=== PATIENT | female | born 1980 | race Caucasian/White ===

== ENCOUNTER → 2016-09-04 | Outpatient (REF) | payer BC ==
[2016-09-04 13:25] LABS: BASO % 0.6 % (0.0-1.0); EOS # 0.1 K/mm3 (0.0-0.50); EOS % 0.9 % (0.0-3.0); LARGE UNSTAINED CELL # 0.1 K/mm3 (0.0-0.4); LARGE UNSTAINED CELL % 2.1 % (0.0-4.0); LYMPH # 1.8 K/mm3 (1.5-4.5); LYMPH % 29.8 % (24.0-44.0); MEAN CORPUSCULAR HEMOGLOBIN 29.6 pg (27.0-33.0); MEAN CORPUSCULAR HGB CONC 32.4 g/dl (32.0-36.5); MEAN CORPUSCULAR VOLUME 91.4 fl (80.0-96.0); MONO # 0.3 K/mm3 (0.0-0.8); MONO % 4.6 % (0.0-5.0); NEUTROPHILS # 3.8 K/mm3 (1.8-7.7); NEUTROPHILS % 61.9 % (36.0-66.0); PLATELET COUNT, AUTOMATED 225 k/mm3 (150-450); RED CELL DISTRIBUTION WIDTH 12.7 % (11.5-14.5); WHITE BLOOD COUNT 6.1 K/mm3 (4.0-10.0)
[2016-09-04 13:57] LABS: ERYTHROCYTE SEDIMENTATION RATE 3 mm/hr (0-20)
[2016-09-04 14:01] LABS: ALBUMIN 4.1 GM/DL (3.2-5.2); ALBUMIN/GLOBULIN RATIO 1.64 (1.00-1.93); ALKALINE PHOSPHATASE 64 U/L (45-117); ALT/SGPT 38 U/L (12-78); ANION GAP 5 MEQ/L (8-16); AST/SGOT 32 U/L (15-37); BILIRUBIN,TOTAL 0.4 MG/DL (0.2-1.0); BLOOD UREA NITROGEN 21 MG/DL (7-18); CARBON DIOXIDE LEVEL 31 MEQ/L (21-32); CHLORIDE LEVEL 105 MEQ/L (98-107); CREATININE FOR GFR 0.77 MG/DL (0.55-1.02); GAMMA GLUTAMYLTRANSPEPTIDASE 14 U/L (5-55); GLOMERULAR FILTRATION RATE > 60.0 (>60); GLUCOSE, FASTING 83 MG/DL (70-105); IMMUNOGLOBULIN G 792 MG/DL (681-1648); POTASSIUM SERUM 4.8 MEQ/L (3.5-5.1); SODIUM LEVEL 141 MEQ/L (136-145); TOTAL PROTEIN 6.6 GM/DL (6.4-8.2)
[2016-09-05 09:26] LABS: HIV SCRN NEGATIVE (NEGATIVE)
[2016-09-05 09:27] LABS: CONTROL LINE INT CTR LINE PRESENT; HIV SCRN1 NEGATIVE (NEGATIVE)
[2016-09-10 00:06] LABS: EBV PCR QUANTITATIVE Negative copies/mL (Negative); IgG SERUM (part of Subclasses) 704 mg/dL (700-1600); IgG Subclass 1 431 mg/dL (422-1292); IgG Subclass 2 161 mg/dL (117-747); IgG Subclass 3 31 mg/dL (41-129); IgG Subclass 4 < 1 mg/dL (1-291)
[2016-09-10 14:16] LABS: CYTOMEGALOVIRUS IgG ANTIBODY <0.60 U/mL (0.00-0.59)
== END ==
LOC: M SFHCPLAZ 10:04
PROVIDERS: ATTEND Internal Medicine Infectious Disease
DX: B27.90 Infectious mononucleosis, unspecified without complication (principal); R16.0 Hepatomegaly, not elsewhere classified

== ENCOUNTER → 2016-09-18 | Outpatient (CLI) | payer BC ==
[2016-09-18 19:38] LABS: COMPLEMENT C4 19.7 MG/DL (10-40); IMMUNOGLOBULIN G 719 MG/DL (681-1648)
[2016-09-22 14:11] LABS: ANTI TETANUS ANTIBODY 2.26 IU/mL (<0.10)
== END ==
LOC: M SMT 11:45
PROVIDERS: ATTEND Allergy & Immunology Allergy
DX: D80.1 Nonfamilial hypogammaglobulinemia (principal)

== ENCOUNTER → 2016-12-18 | Outpatient (REF) | payer BC ==
[2016-12-18 15:17] LABS: FREE T4 0.88 NG/DL (0.76-1.46)
[2016-12-31 14:14] LABS: ALPHA-AMINOADIPATE 1.7 umol/L (0.0-2.2); BETA-AMINOISOBUTYRATE 2.3 umol/L (0.3-4.3); C10 0.13 umol/L (0.00-0.38); C10:1 0.08 umol/L (0.01-0.32); C10:2 0.01 umol/L (0.00-0.05); C12 0.05 umol/L (0.00-0.15); C14 0.02 umol/L (0.00-0.06); C14-HYDROXY 0.01 umol/L (0.00-0.02); C14:1 0.03 umol/L (0.00-0.17); C14:2 0.02 umol/L (0.00-0.11); C16 0.05 umol/L (0.03-0.13); C16:1 0.01 umol/L (0.00-0.04); C18:1 0.12 umol/L (0.04-0.17); C18:2 0.05 umol/L (0.00-0.11); C2 4.14 umol/L (3.23-10.29); C3 0.36 umol/L (0.16-0.62); C4 0.21 umol/L (0.08-0.32); C4-DICARBOXYLIC 0.02 umol/L (0.01-0.07); C5 0.13 umol/L (0.01-0.21); C5:1 0.03 umol/L (0.00-0.02); C6 0.04 umol/L (0.00-0.10); C8 0.09 umol/L (0.00-0.27); CARNITINE FREE 31 umol/L (16-60); COENZYME Q10 TOTAL 0.94 ug/mL (0.37-2.20); ESTERIFIED/FREE 0.3 Ratio (0.1-0.9); GAMMA-AMINOBUTYRATE <0.4 umol/L (0.0-0.3)
== END ==
LOC: M LABDRAW1 13:24
PROVIDERS: ATTEND Nurse Practitioner Pediatrics
DX: F43.21 Adjustment disorder with depressed mood (principal); F41.9 Anxiety disorder, unspecified

== ENCOUNTER → 2018-09-08 | Outpatient (CLI) | payer BC ==
[2018-09-08 18:26] LABS: C REACTIVE PROTEIN QUANTITATIV < 0.30 MG/DL (0.00-0.30); RHEUMATOID FACTOR QUANT < 10.0 IU/ML (<15.0)
[2018-09-15 00:07] LABS: ANTI DOUBLE STRAND-DNA AB 1 IU/mL (0-9); ANTINUCLEAR ANTIBODIES DIRECT Positive (Negative); RNP ANTIBODIES <0.2 AI (0.0-0.9); SJOGREN'S ANTI SS-A <0.2 AI (0.0-0.9); SJOGREN'S ANTI SS-B <0.2 AI (0.0-0.9); SMITH ANTIBODIES <0.2 AI (0.0-0.9)
== END ==
LOC: M LAB 17:18
PROVIDERS: ATTEND Nurse Practitioner
DX: F43.21 Adjustment disorder with depressed mood (principal); F41.9 Anxiety disorder, unspecified; E03.9 Hypothyroidism, unspecified; K31.84 Gastroparesis; Q79.6 Ehlers-Danlos syndromes

== ENCOUNTER → 2022-04-11 | Outpatient (CLI) | payer BC | LOC: M PLARAD 12:07 | PROVIDERS: ATTEND Physician Assistant | DX: S46.911A Strain of unspecified muscle, fascia and tendon at shoulder and upper arm level, right arm, initial encounter (principal); M77.8 Other enthesopathies, not elsewhere classified; M19.011 Primary osteoarthritis, right shoulder; X58.XXXA Exposure to other specified factors, initial encounter; Y92.9 Unspecified place or not applicable; Y93.9 Activity, unspecified; Y99.9 Unspecified external cause status ==

== ENCOUNTER → 2023-10-07 | Outpatient (CLI) | payer BC | LOC: M CARPUL 08:19 | PROVIDERS: ATTEND Internal Medicine | DX: M34.1 CR(E)ST syndrome (principal) ==

== ENCOUNTER → 2024-05-03 | Outpatient (CLI) | payer BC ==
[2024-05-03 15:14] LABS: BASO # 0.1 10^3/uL (0.0-0.2); BASO % 0.9 % (0.0-1.0); EOS # 0.1 10^3/uL (0.0-0.5); EOS % 0.8 % (0.0-3.0); HEMATOCRIT 41.1 % (36.0-47.0); HEMOGLOBIN 13.4 g/dl (12.0-15.5); LYMPH # 2.2 10^3/uL (1.5-5.0); LYMPH % 33.4 % (24.0-44.0); MEAN CORPUSCULAR HEMOGLOBIN 28.7 pg (27.0-33.0); MEAN CORPUSCULAR HGB CONC 32.6 g/dl (32.0-36.5); MONO # 0.4 10^3/uL (0.0-0.8); MONO % 6.2 % (2.0-8.0); NEUTROPHILS # 3.8 10^3/uL (1.5-8.5); NEUTROPHILS % 58.5 % (36.0-66.0); PLATELET COUNT, AUTOMATED 274 10^3/uL (150-450); RED BLOOD COUNT 4.67 10^6/uL (4.00-5.40); WHITE BLOOD COUNT 6.5 10^3/uL (4.0-10.0)
[2024-05-03 15:20] LABS: ERYTHROCYTE SEDIMENTATION RATE 1 mm/hr (0-20)
[2024-05-03 15:40] LABS: ALKALINE PHOSPHATASE 50 U/L (35-104); ALT/SGPT 14 U/L (7.0-40); AST/SGOT 12 U/L (<34); BILIRUBIN,TOTAL 0.4 MG/DL (0.3-1.2); BLOOD UREA NITROGEN 10 MG/DL (9-23); CARBON DIOXIDE LEVEL 30 MMOL/L (20-31); CHLORIDE LEVEL 107 MMOL/L (98-107); CREATININE FOR GFR 0.66 MG/DL (0.55-1.30); GLOMERULAR FILTRATION RATE > 60.0 (>58); GLUCOSE, FASTING 124 MG/DL (60-100); POTASSIUM SERUM 4.1 MMOL/L (3.5-5.1); SODIUM LEVEL 140 MMOL/L (136-145); TOTAL PROTEIN 6.8 G/DL (5.7-8.2)
[2024-05-03 15:41] LABS: RHEUMATOID FACTOR QUANT 7.2 IU/ML (<14)
[2024-05-03 15:42] LABS: THYROID STIMULATING HORMONE 1.215 uIU/ML (0.55-4.78); TOTAL 25(OH) VITAMIN D 28.3 NG/ML (20.0-100.0)
[2024-05-05 10:08] LABS: ANA PATTERN Nuclear, Centromere (NEGATIVE); ANA SCREEN, IFA POSITIVE (NEGATIVE)
== END ==
LOC: M PLALAB 13:31
PROVIDERS: ATTEND Psychiatry & Neurology Neurology
DX: R51.9 Headache, unspecified (principal)